=== PATIENT | female | born 1930 | race African-American/Black ===

== ENCOUNTER 2016-12-26 11:07 | Emergency (ER) | payer OTHER ==
[~2016-12-26] VITALS: Ht 167.6 cm; Wt 93.8 kg
[~2016-12-26 11:07] MED LIST: ALBUTEROL2.5 MG/0.5 INH; ALLOPURINOL 10100 M1 PO; AMLODIPINE BESY10 MG PO; ARTIFICIAL TEAR15 M1 OPHTHALMIC; ASPIR 8181 MG PO; ATIVAN INTENSOL SUBLING; ATIVAN0.5 MG PO; ATORVASTATIN CA40 MG PO; BACTROBAN CREAM30 G1 TOP; BENEPROTEIN1 EACH PER TUBE; BENEPROTEIN1 EACH PO; BISACODYL SUPP10 MG RECTAL; CENTRUM SILVER1 EAC4 PO; CLONIDINE0.1 PO; COLACE100 MG PO; COREG6.25 MG PO; COUMADIN 4 MG TA4 M1 PER TUBE; COUMADIN 4 MG TA4 M1 PO; COUMADIN 5 MG TA5 M1 PER TUBE; COUMADIN 5 MG TA5 M1 PO; DUONEB 2.5-0.5 M3 ML INH; ENGERIX B IM; EPOGEN20000 UNI2 SUBQ; GABAPENTIN 100100 MG PO; HEPARIN SO5000 UNIT/ SUBQ; HYDROCERIN CREA1 JAR TOP; IRON325 PO; LASIX 40 MG TAB40 M2 PO; LISINOPRIL10 MG PO; MAGOX 400400 MG PO; METOCLOPRAMIDE 55 M1 GT; MIRALAX17 GM PO; MODAFINIL100 MG PER TUBE; NEPHRO-VITE RX1 TA1 PER TUBE; NEPHROCAPS SOFT1 CAP PER TUBE; NEXIUM40 MG PO; NORCO 5-325 TA1 EACH PO; ONDANSETRON HCL4 M2 PO; ORAPRED15 MG/5 ML PO; OXYCODONE HCL10 MG PO; PANTOPRAZOLE SO40 M1 PO; PEPCID20 MG PO; PREDNISOLO15 MG/5 ML PER TUBE; PREDNISONE 20 M20 M1 PO; PREDNISONE 5 MG5 M1; PROTONIX40 M1 PO; REGLAN 10 MG TA10 MG PER TUBE; REGLAN 10 MG TA10 MG PO; ROBITUSSIN100 MG/53 PO; ROXANOL 20 M20 MG/ML PER TUBE; SENNA8.6 MG PER TUBE; SENOKOT-S1 TA1 PO; SYMBICORT160 MCG/4. INH; TRANSDERM-SCO1 PATC1 TD; TYLENOL325 MG PO; VANCOCIN 125 M125 M1; VANCOMYCIN100 MG/M1 PO; VENTOLIN HFA 1818 GM INH; VITAMIN D1000 UNI1 PO; XALATAN2.5 ML OPHTHALMIC; ZOFRAN ODT4 MG DISSOLVE
[2016-12-26 12:39] VITALS: BP 109/29
== END 2016-12-26 14:31 | disposition short-term general hospital (02) ==
LOC: ER 11:07
DX: T82.898A Other specified complication of vascular prosthetic devices, implants and grafts, initial encounter (principal); I13.2 Hypertensive heart and chronic kidney disease with heart failure and with stage 5 chronic kidney disease, or end stage renal disease; N18.6 End stage renal disease; I50.32 Chronic diastolic (congestive) heart failure; Z99.2 Dependence on renal dialysis; J44.9 Chronic obstructive pulmonary disease, unspecified; K21.9 Gastro-esophageal reflux disease without esophagitis; E78.5 Hyperlipidemia, unspecified; E66.8 Other obesity; F41.9 Anxiety disorder, unspecified; M10.9 Gout, unspecified; Z86.73 Personal history of transient ischemic attack (TIA), and cerebral infarction without residual deficits; I48.91 Unspecified atrial fibrillation; Z79.82 Long term (current) use of aspirin

== ENCOUNTER 2017-05-01 16:12 | Inpatient (IN) | payer OTHER ==
[~2017-05-01] VITALS: Ht 162.6 cm; Wt 88.5 kg
[2017-05-01] VITALS: BP 158/60
--- NOTE | ~2017-05-01 | EKG ---
[place] [address] [facility] [place] [address] ELECTROCARDIOGRAM REPORT Name: PIERCE BARON Room #: 450-P ADM IN M.R.#: [id number] Admission: 05/01/17 Attend Phys: Huan Blake DO Discharge: Date of : 30 Report #: [id number] THIS REPORT FOR: //name// [facility] ED Test Date: 2017-05-01 Test Time: 16:29:35 Pat Name: PIERCE BARON Department: Room: 450 Gender: F Dental Instructor: Oscar ASCENCIO : 1930 Requested By: Kameron Burleson Order Number: [id number] MD: Tang Sage Measurements Intervals [place] Rate: 114 P: 73 AK: 187 QRS: 35 QRSD: 103 T: 207 QT: 351 QTc: 484 Interpretive Statements Sinus tachycardia Multiform ventricular premature complexes Anteroseptal infarct, old Nonspecific ST and T wave abnormality Compared to ECG 11/06/2016 20:26:14 Premature supraventricular complexes are now present Electronically Signed On 05-03-2017 8:43:38 CDT by Tang Sage [email or web address] <ELECTRONICALLY SIGNED> By: Tang Sage MD, [facility] 05/03/17 0843 [id number] 1629 Tang Sage MD, [facility] /EPI
--- NOTE | ~2017-05-01 | HC ---
[facility] [place] [address] CONSULTATION Name: PIERCE BARON Room #: [facility]- ADM IN M.R.#: [id number] Admission: 05/01/17 Attend Phys: Huan Blake DO Discharge: Date of : 30 Report #: [id number] THIS REPORT FOR: //name// CC: Ruddy Christina MD [facility] physician/PCP Huan Blake DO DATE OF SERVICE: 05/02/2017 TYPE OF REPORT: Gastroenterology consultation. PATIENT OF: Huan Blake D.O. and Red Christina M.D. She is also a patient of Ruddy Vora M.D. CHIEF COMPLAINT AND HISTORY OF PRESENT ILLNESS: This is a very pleasant 86-year-old -Fijian female whom I am asked to evaluate for possible sources of coffee-ground emesis. The patient apparently was at dialysis today and shortly after she finished dialysis, she had some coffee-ground emesis. She came to the Emergency Room at [facility] for further evaluation. PAST MEDICAL HISTORY: Significant for iron-deficiency anemia, gastroesophageal reflux, diverticulitis, obesity, atrial fibrillation, chronic obstructive pulmonary disease, hypertension, hyperlipidemia, congestive heart failure, cerebrovascular accident with aphasia, history of pulmonary embolism, gout, glaucoma and end-stage renal disease and she is on dialysis. 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 PAST SURGICAL HISTORY: Significant for a breast lumpectomy that was benign and she had a vaginal hysterectomy. ALLERGIES: No known drug allergies. MEDICATIONS: Prior to admission are quite extensive and includes albuterol, allopurinol, aspirin, Dulcolax suppositories, vitamin D, cholestyramine, vitamin B12, Lasix, hydrocodone, Humalog insulin, DuoNeb, Xalatan eye drops, Zofran, artificial tears and Ativan. SOCIAL HISTORY: Not obtainable because the patient was aphasic. FAMILY HISTORY: Not obtainable because the patient was aphasic. REVIEW OF SYSTEMS: Likewise was not obtainable because of her aphasia. Most of this history is obtained from the patient's existing chart in the computer. [facility] [address] [place] [address] CONSULTATION Name: PIERCE BARON Room #: [address] [place] [address] IN .R.#: [id number] Admission: 05/01/17 Attend Phys: Huan Blake DO Discharge: Date of : 30 Report #: [id number] PHYSICAL EXAMINATION: GENERAL: Reveals a well-developed, obese 86-year-old -Fijian female, in no apparent distress at the time of my examination, who is awake and alert and answering some by yes or no or nodding her head yes or no. HEENT: She appears normocephalic and atraumatic and anicteric. HEART: Rate and rhythm are irregularly irregular consistent with her atrial fibrillation. LUNGS: Clear to auscultation. ABDOMEN: Soft and rotund. Bowel sounds are present in the abdomen but are decreased. There is no palpable organomegaly or mass, although it is difficult to palpate her abdomen because she is so large. She is diffusely tender to palpation; however, there is no rebound or guarding. EXTREMITIES: Warm and dry. NEUROLOGICAL: I did not test her extensively neurologically. SIGNIFICANT LABORATORY DATA: Showed a potassium of 2.5 on admission up to 3.2, now BUN 39 and creatinine 3.3. Liver enzymes are within normal limits. Albumin 2.4. Lactate was 1.3 yesterday. INR is 1.1. White blood cell count is 20.8; hemoglobin 9.5; hematocrit 30.1; indices are normal; RDW is 17.2 and platelet count 465,000. Urinalysis is pending. RADIOLOGICAL DATA: The significant findings on CT chest, abdomen and pelvis done on 05/01/2017 are as follows: Gas and fluid are distending the stomach. Gastrostomy tube was noted. There was a large amount of fluid and liquid appearing stool present throughout the entire colon with a generalized chronic distention. There is mild mural thickening of the ascending and transverse colon with associated pericolonic mesenteric fat stranding in the right and central abdomen suggesting possible colitis. There is also mesenteric fat stranding in the perirectal pelvic fat and in the presacral space and this could possibly reflect proctitis. There is generalized small bowel dilatation with small-bowel fluid gas, fluid and fecal-appearing material suggesting some degree of distal small-bowel obstruction. There is a bilobed cystic mass in the right pelvis that was identified on the prior CT scan that possibly represents a cystic right ovarian mass measuring 6.7 cm in its greatest dimensions, which is slightly increased in size from previous evaluations, may be enlarged right inguinal lymph nodes. IMPRESSION: 1. Coffee-ground emesis, uncertain etiology. 2. Anemia, history of iron deficiency. Stool is heme negative x 1 at this point. 3. Elevated white blood cell count of uncertain etiology. She appears to have colitis involving the ascending and transverse colon with stranding and proctitis and perirectal stranding. I think this is probably the etiology of the elevated white blood cell count, but I am not sure what is causing this. [address] [address] CONSULTATION Name: PIERCE BARON Room #: [address] [place] [address] IN M.R.#: [id number] Admission: 05/01/17 Attend Phys: Huan Blake DO Discharge: Date of : 30 Report #: [id number] The patient has a history of Clostridium difficile in December of 2014 but has been negative since then, according to repeat Clostridium difficile in the chart. 4. Dysphagia by history requiring a percutaneous endoscopic gastrostomy tube. This may have been the result of her cerebrovascular accident. 5. Gastroesophageal reflux. 6. History of diverticulitis. 7. Obesity. 8. Possible distal small-bowel obstruction. 9. Buttock wound. 10. Atrial fibrillation. 11. Chronic obstructive pulmonary disease. 12. Hypertension. 13. Hyperlipidemia. 14. History of congestive heart failure. 15. History of cerebrovascular accident with resulting aphasia. 16. History of pulmonary embolism. 17. History of gout. 18. History of glaucoma. 19. End-stage renal disease, on dialysis. 20. History of sleep apnea. 21. Arthritis. 22. 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 RECOMMENDATIONS: 1. My recommendations were to proceed with EGD today. We will start her on proton pump inhibitors. We will monitor her H and H. I would hold her tube feedings for now until I figure out if she really does have a small-bowel obstruction. 2. Would check stools for C. diff cultures and sensitivity and wbc's. 3. We will recheck her iron studies. 4. Breast-spectrum antibiotics. 5. We will check a lactate level. 6. We will place a PEG tube dependent drainage as her stomach is distended with fluid. 7. We will keep her n.p.o. for now. Thank you very much once again for allowing me to participate in her care, Dr. Blake. <ELECTRONICALLY SIGNED> By: Yelena Thibodeaux DO 05/08/17 0600 2336 1013 Yelena Thibodeaux, /nt
--- NOTE | ~2017-05-01 | HC ---
[facility] [place] [address] CONSULTATION Name: PIERCE BARON Room #: [facility]- ADM IN M.R.#: [id number] Admission: 05/01/17 Attend Phys: Huan Blake DO Discharge: Date of : 30 Report #: [id number] THIS REPORT FOR: //name// CC: [facility] physician/PCP Huan Blake TYPE OF REPORT: Infectious diseases consultation. REASON FOR CONSULTATION: I was asked to evaluate concerning leukocytosis. HISTORY OF PRESENT ILLNESS: The patient was an 86-year old with end-stage renal disease, who had seen last September where she was diagnosed with leukocytosis, exacerbation of her COPD, ovarian cystic mass with a recent GI bleed. Specific cause of her leukocytosis at that point in time was not definitively established. She was discharged on antibiotics. Later, she underwent a new tunneled IJ dialysis catheter in December. She returns on 05/01/2017 with coffee-ground emesis. No documented fever or chills. She continues on dialysis 3 days a week. At that time, she was again with leukocytosis over 20,000. The patient is a poor historian. She does have a history of diverticulitis, previous stroke with aphasia, some dementia, previous GI bleeding, atrial fibrillation, congestive heart failure, pancreatitis and gout. She also had an ovarian cystic mass, which was indeterminate and not pursued further. She underwent upper endoscopy showed severely ulcerated distal esophagitis with gastroparesis and retained coffee-ground liquid in the stomach. She has remained afebrile. Still has abdominal discomfort. No further bleeding identified. Stools have been light brown and soft. Remains on 4 liters of oxygen per nasal cannula. ALLERGIES: None known. MEDICATIONS: As noted on her OCT. PAST MEDICAL HISTORY: Unchanged from her H and P and that is in my previous consultation. FAMILY HISTORY: Unchanged from her H and P and that is in my previous consultation. SOCIAL HISTORY: Unchanged from her H and P and that is in my previous consultation. REVIEW OF SYSTEMS: No cough or sputum production. Continues to have discomfort in her abdomen, stage II sacral pressure ulcer and a small ulceration, right second toe. PHYSICAL EXAMINATION: VITAL SIGNS: Afebrile and hemodynamically stable. [facility] [address] [place] [address] CONSULTATION Name: PIERCE BARON Room #: [address] [place] [address] IN M.R.#: [id number] Admission: 05/01/17 Attend Phys: Huan Blake DO Discharge: Date of : 30 Report #: [id number] GENERAL: She was alert and cooperative, week and obese. HEENT: Unremarkable. Right chest dialysis catheter unremarkable. LUNGS: Few crackles in the bases bilaterally. HEART: Regular without murmur. ABDOMEN: Distended. She had a PEG tube in place. She had a moderate amount of tenderness in the mid abdomen. No hepatosplenomegaly or mass appreciated. EXTREMITIES: Unremarkable. Stage II sacral wound. LABORATORY STUDIES: Sodium 135, potassium 3.2, bicarbonate 22 and creatinine 3.3. Liver function test normal. Hemoglobin 8.8; WBC 20.8 and platelet count 465,000 with 91% lymphocytes. Blood cultures and stool culture are pending. RADIOLOGICAL DATA: CT scan of the chest and abdomen, generalized colonic distention with liquid stool throughout the colon and probable colitis involving the ascending and transverse colon. Possible distal small-bowel obstruction. Increased size of bilobed cystic mass in the right pelvis, suspected ovarian origin. Atelectasis in the right posterior lower lobe. IMPRESSION: An 86-year old with multiple comorbidities including end-stage renal disease with persistent leukocytosis. I do suspect abdominal source of her leukocytosis with colitis, likely ischemic component of her bowel. She also has an ovarian cystic mass, which has yet to be further defined. RECOMMENDATIONS: We will recommend continuing antibiotic coverage for intraabdominal source. If further evaluation planned, I would pursue lower endoscopy to assess her colonic mucosa. I am suspicious regarding ischemia. We will await GI service recommendations. I did discuss this with Internal Medicine who is also pursuing palliative care evaluation. I will continue her antibiotic program pending further direction. By: 1443 [id number] Red Christina MD /nt
--- NOTE | ~2017-05-01 | HC ---
[facility] [place] [address] CONSULTATION Name: PIERCE BARON Room #: [facility]- ADM IN M.R.#: [id number] Admission: 05/01/17 Attend Phys: Huan Blake DO Discharge: Date of : 30 Report #: [id number] THIS REPORT FOR: //name// CC: [facility] physician/PCP Huan Blake REASON FOR CONSULTATION: End-stage renal disease. REASON FOR PRESENTATION: Coffee-ground emesis. HISTORY OF PRESENT ILLNESS: The patient is an 86-year-old with past medical history of end-stage renal disease and dementia. Unfortunately, she is not able to provide me with the details of the history and most of the information was obtained from the patient's chart. The Emergency Medical says this is reported as episodes of coffee ground. This was following her dialysis yesterday. The patient did not report any associated symptoms in the form of abdominal pain or melena. She had expressive aphasia. She is also known to have multiple other comorbid conditions including atrial fibrillation, hypertension and COPD. She recently had an upper GI bleeding and had an endoscopy done in September of this year. The details of those are available in the [facility]. I was consulted to manage her end-stage renal disease. ALLERGIES: No known drug allergies. PAST MEDICAL HISTORY: Numerous including the followin. Hypertension. 2. Dementia. 3. Stroke with aphasia. 4. End-stage renal disease, maintained on dialysis every Saturday, Saturday and Saturday. 5. Recent upper GI bleeding. MEDICATIONS: 1. Albuterol. 2. Hydrocodone. 3. For unclear reasons to me, she is on prednisone. 4. Allopurinol. 5. Aspirin. 6. Furosemide. 7. Scopolamine. PAST SURGICAL HISTORY: 1. Hysterectomy. 2. Thrombectomy. SOCIAL HISTORY: She resides in the . No drug or alcohol abuse. [facility] [address] [place] [address] CONSULTATION Name: PIERCE BARON Room #: 450-P [facility]#: [id number] Admission: 05/01/17 Attend Phys: Huan Blake DO Discharge: Date of : 30 Report #: [id number] REVIEW OF SYSTEMS: Not able to obtain due to the patient's mental status. PHYSICAL EXAMINATION: GENERAL: The patient is alert, though she is not able to tell me where she is. VITAL SIGNS: Blood pressure was 146/105, pulse rate was 106 and temperature was 36. HEAD AND NECK: No jugular venous distention. CHEST: No crackles. CARDIOVASCULAR: No rub. ABDOMEN: Soft. Slight tenderness in the epigastrium. LOWER EXTREMITIES: No edema. LABORATORY DATA: Laboratory values reviewed. The most shocking is the potassium of 2.5. Hemoglobin is stable. IMAGING: Including chest x-ray reviewed. ASSESSMENT, IMPRESSION AND PLAN: 1. End-stage renal disease. 2. An episode of coffee-ground emesis. 3. Hypertension. 4. Remote history of stroke, dementia and aphasia. 5. Chronic obstructive pulmonary disease. 6. Anemia. 7. The patient received significant amount of potassium, almost up to 5 doses and I will need to obtain a potassium level and have to decide about dialyzing her today or not. If her potassium level is within normal range, we will defer the dialysis treatment until tomorrow. 8. GI workup has been initiated. She is known to have hemorrhagic esophagitis and gastritis and was recommended to be on PPI for some time. I will defer the management of this for the primary team. 9. Need to clarify whether she is on prednisone and this might be contributing to her gastrointestinal bleeding. 10. Blood pressure control. 11. We will continue to follow along. <ELECTRONICALLY SIGNED> By: Ruddy Vora MD 05/07/17 2146 1107 1229 Ruddy Vora MD /nt
--- NOTE | ~2017-05-01 | P ---
[facility] [place] [address] PROCEDURE REPORT Name: PIERCE BARON Room #: 450- ADM IN M.R.#: [id number] Admission: 05/01/17 Attend Phys: Huan Blake DO Discharge: Date of : 30 Report #: [id number] THIS REPORT FOR: //name// CC: [facility] physician/PCP Huan Reynolds DO DATE OF SERVICE: 05/02/[address] Huan Reynolds. INDICATION FOR PROCEDURE: This patient came in with coffee ground emesis to the Emergency Room last night. Her hemoglobin is 10 and it has been stable overnight. She has had no further hematemesis. The etiology of this hematemesis is unclear, I do not have computer access right now because the computer is , I cannot review her chart adequately, but I do have some of her current information including her medications and her allergies. EGD is being performed to try to evaluate the source of this coffee ground emesis. Informed consent for this procedure was obtained from the patient's DPOA. The risks of bleeding, perforation, infection, complications of sedation and the possibility that I could miss something were explained and permission was granted to proceed with EGD. The patient herself agrees with proceeding with EGD also after I explained it to her. Propofol was slowly titrated before and during this procedure for the patient's comfort by the anesthesia service. The [employer]ov[employer] upper videoscope was introduced through the upper esophageal sphincter and advanced under direct visualization to the descending duodenum. Findings are noted on withdrawal of the scope. The duodenal mucosa appears normal throughout its entirety. Pylorus, normal mucosa. Antrum, normal mucosa. There is some retained fluid in the distal stomach as well as in the fundus that is kid of blackish-green color. This may have been similar to what the patient was vomiting and it may indicate that she has gastroparesis. Body, normal mucosa. Cardia and fundus, normal mucosa. Retroflex view did not reveal any hiatal hernia. Scope was withdrawn to the esophagus from the Z line up until the center of the esophagus at 30 cm. There are severe white colored nonbleeding ulcerations. I do suspect that this is the source of coffee ground emesis. This would be consistent also with acid reflux related to poor stomach emptying or gastroparesis. The more proximal esophageal mucosa appears normal. The scope was withdrawn. The patient went to the recovery area in stable condition. She tolerated the procedure well. IMPRESSION: 1. Severely ulcerated distal esophagus as above. 2. Suspected gastroparesis with retained coffee ground liquid in the patient's stomach as above. [facility] [address] [place] [address] PROCEDURE REPORT Name: PIERCE BARON Room #: [address] [place] [address] IN M.R.#: [id number] Admission: 05/01/17 Attend Phys: Huan Blake DO Discharge: Date of : 30 Report #: [id number] RECOMMENDATIONS: To add a prokinetic and start her on proton pump inhibitors if this has not already been done. Can try to slowly resume tube feedings. Thank you very much once again for allowing me to participate in her care. <ELECTRONICALLY SIGNED> By: Yelena Thibodeaux DO 05/02/17 1800 1205 1300 Yelena Thibodeaux DO /nt
--- NOTE | ~2017-05-01 | HC ---
[facility] [place] [address] CONSULTATION Name: PIERCE BARON Room #: [facility]- ADM IN M.R.#: [id number] Admission: 05/01/17 Attend Phys: Huan Blake DO Discharge: Date of : 30 Report #: [id number] THIS REPORT FOR: //name// CC: [facility] physician/PCP Huan Blake DATE OF SERVICE: 05/02/2017 CHIEF COMPLAINT: Stage II sacral pressure ulceration. HISTORY OF PRESENT ILLNESS: This is an 86-year-old female patient who was admitted to the hospital from half-way with a GI bleed. She is nonverbal, apparently had coffee-ground emesis, she was noted to have some skin breakdown. I have been asked to see her in this regard. PAST MEDICAL HISTORY: Positive for history of altered mental status, congestive heart failure, chronic renal failure, COPD, dialysis catheter clot, end-stage renal disease, history of pulmonary embolus, and upper GI bleeding. ALLERGIES: None. MEDICATIONS: Include DuoNeb, Dulcolax, Zofran, Ativan, Zyloprim, Lasix, and Xalatan. FAMILY HISTORY: Unknown. SOCIAL HISTORY: Unknown. REVIEW OF SYSTEMS: Not obtainable due to the patient's aphasia. PHYSICAL EXAMINATION: VITAL SIGNS: The patient's vital signs at this time include pulse 91, temperature 97.2, respiratory rate 24, and blood pressure 146/43. GENERAL: This is a chronically ill-appearing female patient, appears to be in no distress. HEENT: Head normocephalic. NECK: Supple. LUNGS: Diminished. HEART: Irregular. ABDOMEN: Soft, nontender. EXTREMITIES: Demonstrate some necrosis and eschar involving the dorsal aspect of the right second toe. There is no evidence of infection. The sacral region demonstrates some stage II breakdown on the sacral gluteal region with no evidence of infection. CLINICAL IMPRESSION: [facility] [address] [place] [address] CONSULTATION Name: PIERCE BARON Room #: 450-P ADM IN [place]#: [id number] Admission: 05/01/17 Attend Phys: Huan Blake DO Discharge: Date of : 30 Report #: [id number] 1. Arterial ulceration of the right second toe. 2. Stage II sacral pressure ulceration. RECOMMENDATIONS: At this point in time, we would recommend Betadine to the eschar on the right great toe in order to keep it dry and not infected. I would not recommend debridement at this time. We would recommend a moisture barrier cream to the sacral region, she need to be turned and repositioned every 2 hours. I appreciate being asked to see her in consultation. <ELECTRONICALLY SIGNED> By: Constantine Hernandez MD 05/03/17 1539 0816 0937 Constantine Hernandez MD /nt
[2017-05-01 16:14] VITALS: BP 145/102
[2017-05-01 17:37] LABS: HEMATOCRIT 31.6 % (37.0-47.0); MCH 29.9 pg (26.0-34.0); MCHC 31.5 g/dL (28.0-37.0); MCV 94.7 fL (80.0-100.0); PLATELET COUNT 525 thou/uL (150-400); RBC 3.33 mil/uL (4.20-5.00); RDW 17.4 % (10.5-14.5); WBC 20.4 thou/uL (4.0-11.0)
[2017-05-01 17:39] LABS: MANUAL DIFF YES
[2017-05-01 17:43] LABS: ANION GAP 11 mmol/L (7-16); BUN 37 mg/dL (7-18); CALCIUM 8.9 mg/dL (8.5-10.1); CHLORIDE 101 mmol/L (98-107); CO2 23 mmol/L (21-32); CREATININE 3.2 mg/dL (0.6-1.0); GLUCOSE 110 mg/dL (74-106); SODIUM 135 mmol/L (136-145)
[2017-05-01 17:48] LABS: INR 1.1; PROTIME 11.4 Seconds (9.3-11.4)
[2017-05-01 17:51] LABS: ALBUMIN 2.4 g/dL (3.4-5.0); ALKALINE PHOSPHATASE 75 U/L (46-116); SGOT 20 U/L (15-37); SGPT 16 U/L (30-65); TOTAL BILIRUBIN 0.3 mg/dL (<0.1-1.0); TOTAL PROTEIN 6.7 g/dL (6.4-8.2); TROPONIN-I < 0.04 ng/mL (<0.04-0.07)
[2017-05-01 17:52] LABS: POTASSIUM 2.5 mmol/L (3.5-5.1)
[2017-05-01 18:08] LABS: ABSOLUTE NEUTROPHILS 18.6 thou/uL (1.4-8.2); ANISOCYTOSIS 1+; TOTAL CELL COUNT 100
[2017-05-01] MEDS ORDERED: ALLOPURINOL 10100 M1 PER TUBE (18:25)
[2017-05-01] MEDS ORDERED: ASPIR 8181 M1 (18:27)
[2017-05-01] MEDS ORDERED: LASIX 20 MG TAB20 MG (18:28)
[2017-05-01] MEDS ORDERED: XALATAN2.5 ML OPHTHALMIC (18:29)
[2017-05-01] MEDS ORDERED: VITAMIN D1000 UNI1 (18:30)
[2017-05-01] MEDS ORDERED: CHOLESTYRAMINE R5 GM (18:38)
[2017-05-01] MEDS ORDERED: VITAMIN B-12500 MCG PER TUBE (18:39)
[2017-05-01] MEDS ORDERED: HYDROCODONE-ACE15 ML PER TUBE (18:40)
[2017-05-01] MEDS ORDERED: HUMALOG100 UNIT/1 SUBQ (18:42)
[2017-05-01 19:13] VITALS: BP 111/57
[2017-05-01 19:47] VITALS: BP 101/47
[2017-05-01 20:40] VITALS: BP 115/43
[2017-05-02] VITALS: BP 158/60
[2017-05-02 02:49] LABS: CALCIUM 8.3 mg/dL (8.5-10.1); CREATININE 3.3 mg/dL (0.6-1.0)
[2017-05-02 02:59] LABS: HEMATOCRIT 30.1 % (37.0-47.0); HEMOGLOBIN 9.5 gm/dL (12.0-15.0); MCHC 31.4 g/dL (28.0-37.0); MCV 95.3 fL (80.0-100.0); PLATELET COUNT 465 thou/uL (150-400); RBC 3.16 mil/uL (4.20-5.00); RDW 17.2 % (10.5-14.5); WBC 20.8 thou/uL (4.0-11.0)
[2017-05-02 03:11] LABS: POTASSIUM 2.9 mmol/L (3.5-5.1)
[2017-05-02 03:35] VITALS: BP 147/49
[2017-05-02 04:48] LABS: MANUAL DIFF YES
[2017-05-02 04:56] LABS: ABSOLUTE NEUTROPHILS 18.1 thou/uL (1.4-8.2); ANISOCYTOSIS 1+; LARGE PLATELETS OCCASIONAL; MYELOCYTES 1 %; TOTAL CELL COUNT 100; TOXIC GRANULATION SLIGHT
[2017-05-02 08:20] VITALS: BP 141/54
[2017-05-02 12:50] VITALS: BP 159/51
[2017-05-02 16:40] VITALS: BP 152/54
[2017-05-02 19:10] VITALS: BP 146/43
[2017-05-03 04:37] VITALS: BP 157/57
[2017-05-03 06:33] LABS: HEMATOCRIT 28.1 % (37.0-47.0); HEMOGLOBIN 8.8 gm/dL (12.0-15.0)
[2017-05-03 07:23] LABS: ABG SAMPLE TYPE ARTERIAL; BE(vivo) -10.5 mmol/L (-2 to +3); HCO3 16.3 mmol/L (22.0-26.0); LACTATE 0.92 mmol/L (0.5-2.0); O2(CT) 13.9 mL/dL (15.0-23.0); O2Hb 97.9 % (92.0-98.0); PCO2 39.7 mmHg (35.0-45.0); PO2 139.3 mmHg (80.0-100.0); sO2 98.3 % (92.0-98.0); tCO2 17.5 mmol/L (24.0-30.0)
[2017-05-03 07:25] LABS: STICK SITE R.RADIAL; pH 7.232 (7.360-7.450)
[2017-05-03 07:29] LABS: ABG COMMENT .PT GETTING DIALYSIS
[2017-05-03 07:34] LABS: % SATURATION 29 % (20-39); IRON 28 ug/dL (50-170); TIBC 95 ug/dL (250-450); UIBC 67 ug/dL
[2017-05-03 08:25] VITALS: BP 148/66
[2017-05-03 11:40] VITALS: BP 134/50
[2017-05-03 15:19] VITALS: BP 146/51
[2017-05-03 20:04] VITALS: BP 124/41
[2017-05-04 04:19] VITALS: BP 107/41
[2017-05-04 07:08] VITALS: BP 139/51
[2017-05-04 11:31] VITALS: BP 128/43
[2017-05-04 13:02] LABS: ABSOLUTE NEUTROPHILS 7.5 thou/uL (1.4-8.2); BASOPHILS 0.3 % (0.0-2.0); EOSINOPHILS 2.9 % (0.0-3.0); HEMATOCRIT 25.5 % (37.0-47.0); HEMOGLOBIN 8.3 gm/dL (12.0-15.0); LYMPHOCYTES 16.9 % (24.0-44.0); MCH 30.6 pg (26.0-34.0); MCHC 32.7 g/dL (28.0-37.0); MCV 93.8 fL (80.0-100.0); MONOCYTES 10.6 % (1.0-8.0); PLATELET COUNT 499 thou/uL (150-400); POLYS 69.3 % (36.0-66.0); RBC 2.72 mil/uL (4.20-5.00); RDW 17.2 % (10.5-14.5); WBC 10.8 thou/uL (4.0-11.0)
[2017-05-04 13:03] LABS: MANUAL DIFF NO
[2017-05-04 15:34] VITALS: BP 125/50
[2017-05-04 19:41] VITALS: BP 124/62
[2017-05-05 04:32] VITALS: BP 141/45
[2017-05-05 06:29] LABS: ABSOLUTE NEUTROPHILS 7.5 thou/uL (1.4-8.2); BASOPHILS 0.8 % (0.0-2.0); EOSINOPHILS 5.4 % (0.0-3.0); HEMATOCRIT 27.7 % (37.0-47.0); HEMOGLOBIN 8.9 gm/dL (12.0-15.0); LYMPHOCYTES 15.7 % (24.0-44.0); MCH 30.2 pg (26.0-34.0); MCHC 31.9 g/dL (28.0-37.0); MCV 94.5 fL (80.0-100.0); MONOCYTES 9.5 % (1.0-8.0); PLATELET COUNT 548 thou/uL (150-400); POLYS 68.6 % (36.0-66.0); RBC 2.93 mil/uL (4.20-5.00)
[2017-05-05 06:35] LABS: MANUAL DIFF NO
[2017-05-05 08:04] VITALS: BP 144/54
[2017-05-05 12:02] LABS: CALCIUM 8.4 mg/dL (8.5-10.1); CREATININE 4.5 mg/dL (0.6-1.0); MAGNESIUM 1.5 mg/dL (1.8-2.4); POTASSIUM 3.4 mmol/L (3.5-5.1)
[2017-05-05 13:56] VITALS: BP 135/66
[2017-05-05 16:43] VITALS: BP 132/61
[2017-05-05 19:29] VITALS: BP 143/55
[2017-05-06 05:46] LABS: ABSOLUTE NEUTROPHILS 8.7 thou/uL (1.4-8.2); BASOPHILS 0.7 % (0.0-2.0); CALCIUM 8.2 mg/dL (8.5-10.1); CREATININE 5.1 mg/dL (0.6-1.0); EOSINOPHILS 5.8 % (0.0-3.0); HEMATOCRIT 26.6 % (37.0-47.0); HEMOGLOBIN 8.6 gm/dL (12.0-15.0); LYMPHOCYTES 15.1 % (24.0-44.0); MCH 30.7 pg (26.0-34.0); MCHC 32.4 g/dL (28.0-37.0); MCV 94.8 fL (80.0-100.0); PLATELET COUNT 510 thou/uL (150-400); POLYS 70.4 % (36.0-66.0); RDW 17.3 % (10.5-14.5); WBC 12.4 thou/uL (4.0-11.0)
[2017-05-06 05:49] LABS: POTASSIUM 2.9 mmol/L (3.5-5.1)
[2017-05-06 05:51] LABS: MANUAL DIFF NO
[2017-05-06 06:24] VITALS: BP 141/52
[2017-05-06 16:00] VITALS: BP 142/63
[2017-05-06 19:14] VITALS: BP 141/68
[2017-05-07 03:32] VITALS: BP 122/37
[2017-05-07 07:03] VITALS: BP 122/51
[2017-05-07 11:30] VITALS: BP 119/37
[2017-05-07 15:07] VITALS: BP 116/34
[2017-05-07 19:09] VITALS: BP 104/30
[2017-05-08 04:54] LABS: HEMATOCRIT 22.8 % (37.0-47.0); HEMOGLOBIN 7.5 gm/dL (12.0-15.0); MCH 30.6 pg (26.0-34.0); MCHC 32.7 g/dL (28.0-37.0); MCV 93.5 fL (80.0-100.0); RBC 2.44 mil/uL (4.20-5.00); WBC 8.9 thou/uL (4.0-11.0)
[2017-05-08 05:20] VITALS: BP 154/77
[2017-05-08 12:29] VITALS: BP 135/70
[2017-05-08 16:28] VITALS: BP 145/73
[2017-05-08 19:25] VITALS: BP 118/48
[2017-05-09 04:21] VITALS: BP 148/66
[2017-05-09 07:15] VITALS: BP 123/34
[2017-05-09 11:56] VITALS: BP 141/48
== END 2017-05-09 15:54 | DRG 377 ==
LOC: ER 16:12 → 4W 18:28
PROVIDERS: Family Medicine; Internal Medicine Gastroenterology; Nurse Practitioner; Physician Assistant; Specialist; Surgery
PROC: 0DJ08ZZ Inspection of Upper Intestinal Tract, Via Natural or Artificial Opening Endoscopic (ICD-10-PCS; principal; 2017-05-02)
DX: K92.2 Gastrointestinal hemorrhage, unspecified (principal); N18.6 End stage renal disease; R65.10 Systemic inflammatory response syndrome (SIRS) of non-infectious origin without acute organ dysfunction; I13.0 Hypertensive heart and chronic kidney disease with heart failure and stage 1 through stage 4 chronic kidney disease, or unspecified chronic kidney disease; R47.01 Aphasia; K56.60 Unspecified intestinal obstruction; K22.10 Ulcer of esophagus without bleeding; I69.954 Hemiplegia and hemiparesis following unspecified cerebrovascular disease affecting left non-dominant side; I48.91 Unspecified atrial fibrillation; J44.9 Chronic obstructive pulmonary disease, unspecified; M19.90 Unspecified osteoarthritis, unspecified site; G47.33 Obstructive sleep apnea (adult) (pediatric); K21.9 Gastro-esophageal reflux disease without esophagitis; E66.9 Obesity, unspecified; Z68.33 Body mass index [BMI] 33.0-33.9, adult; E78.5 Hyperlipidemia, unspecified; F41.9 Anxiety disorder, unspecified; M10.9 Gout, unspecified; E87.6 Hypokalemia; D72.829 Elevated white blood cell count, unspecified; F03.90 Unspecified dementia, unspecified severity, without behavioral disturbance, psychotic disturbance, mood disturbance, and anxiety; D64.9 Anemia, unspecified; I50.9 Heart failure, unspecified; L89.152 Pressure ulcer of sacral region, stage 2; H40.9 Unspecified glaucoma; N83.9 Noninflammatory disorder of ovary, fallopian tube and broad ligament, unspecified; L89.302 Pressure ulcer of unspecified buttock, stage 2; R41.0 Disorientation, unspecified; K52.9 Noninfective gastroenteritis and colitis, unspecified; K31.84 Gastroparesis; Z90.710 Acquired absence of both cervix and uterus; Z86.711 Personal history of pulmonary embolism; Z79.82 Long term (current) use of aspirin; Z79.899 Other long term (current) drug therapy
CPT/HCPCS: 10045; 32100; 62110; 62900; 70005

== ENCOUNTER 2017-05-17 19:46 | Inpatient (IN) | payer OTHER ==
[~2017-05-17] VITALS: Wt 86.1 kg
--- NOTE | ~2017-05-17 | HC ---
[facility] [address] [place] [address] CONSULTATION Name: PIERCE BARON Room #: 423-1 [facility] IN M.R.#: [id number] Admission: 05/17/17 Attend Phys: Homer De MD Discharge: 05/24/17 Date of : 30 Report #: [id number] THIS REPORT FOR: //name// CC: Cassie Alvarado REASON FOR CONSULTATION: End-stage renal disease. HISTORY OF PRESENT ILLNESS: The patient is not able to provide me with history, she has dementia, advanced and noncommunicative, aphasic person. She is well known to me. She is an end-stage renal disease, status post CVA who was just discharged from the hospital and was in the [facility]. She presented to the emergency room because the nursing staff had some issues with her diarrhea and vomiting. She is a Saturday, Saturday, and Saturday dialysis patient. Recently hospitalized and family declined palliative and hospice and wanted all treatment measures to be continued. She has failed in the last few years and has had recurrent admissions. She is known to have hypertension, AFib, whole list of other medications. I was asked to manage her end-stage renal disease. She was evaluated by the surgical team at the last admissions and she was deemed to be a nonsurgical candidate. PAST MEDICAL HISTORY: From the charts. 1. End-stage renal disease. 2. Obstructive sleep apnea. 3. Hyperlipidemia. 4. Status post lumpectomy. 5. CVA. 6. Hyperlipidemia. 7. Colitis. SOCIAL HISTORY: Resides in the [facility]. No drug or alcohol abuse. REVIEW OF SYSTEMS: Unobtainable given the patient's mental status. FAMILY HISTORY: Unobtainable given the patient's mental status. MEDICATIONS LISTED: 1. Aspirin. 2. Insulin. 3. Fentanyl. 4. Hydrocodone. 5. Zofran. 6. Albuterol. ALLERGIES: No known drug allergies. PHYSICAL EXAMINATION: [facility] [address] [place] [address] CONSULTATION Name: PIERCE BARON Room #: [address] [place] [address] IN M.R.#: [id number] Admission: 05/17/17 Attend Phys: Homer De MD Discharge: 05/24/17 Date of : 30 Report #: [id number] GENERAL: She is disoriented to time, place, person. VITAL SIGNS: Blood pressure is 140/26. HEAD AND NECK: No jugular venous distention. She has a right IJ tunneled catheter. CHEST: Decreased air entry bilaterally. CARDIOVASCULAR: No rub detected. ABDOMEN: Soft, nontender with no hepatosplenomegaly. There is a PEG tube. LOWER EXTREMITIES: No edema. LABORATORY VALUES: Reviewed. Most striking laboratory values are her potassium values at 2.5. White blood cell count 27,000. Cultures are pending. Abdomen CT reviewed. ASSESSMENT, IMPRESSION AND PLAN: 1. End-stage renal disease. 2. Cerebrovascular disease, aphasia. 3. Possible colitis. 4. Debility with repeated hospitalizations in the last year or so. 5. Dialysis will be arranged every Saturday, Saturday and Saturday. We will defer the management of her other issues to the primary team. I really think that this is ____ stage with the patient requiring repeated hospitalization. She was discharged from the hospital just about a week ago and we should discuss with the family palliative and comfort care as this seems to be a persistent and recurrent issue. <ELECTRONICALLY SIGNED> By: Ruddy Vora MD 05/29/17 1000 [id number] Ruddy Vora MD /nt
--- NOTE | ~2017-05-17 | HC ---
[facility] [place] [address] CONSULTATION Name: PIERCE BARON Room #: [facility] ADM IN M.R.#: [id number] Admission: 05/17/17 Attend Phys: Homer De MD Discharge: Date of : 30 Report #: [id number] THIS REPORT FOR: //name// CC: Cassie Alvarado DATE OF SERVICE: 05/20/2017 HISTORY OF PRESENT ILLNESS: The patient is an 86-year-old patient with whom I am familiar from recent hospitalization. She has ulcerations involving her second toes on both feet as well as a history of a sacral ulcer. I have been asked to see her with regard to wound care. She has been admitted at this time with diarrhea and abdominal pain. She is nonverbal, is not able to offer much insight into her current condition. She does not appear to be in distress and does make eye contact with the wound care nurse. PAST MEDICAL HISTORY: Prior history of altered mental status, congestive heart failure, chronic renal failure, COPD, end-stage renal disease, history of pulmonary embolus and upper GI bleeding. ALLERGIES: None. MEDICATIONS: Include DuoNeb, Dulcolax, Zofran, Ativan, Zyloprim, Lasix, and Xalatan. FAMILY HISTORY: Unknown. SOCIAL HISTORY: Unknown. REVIEW OF SYSTEMS: Unobtainable due to the patient's aphasia. PHYSICAL EXAMINATION: VITAL SIGNS: At this time include pulse 104, temperature 99.0, respiration of 18, blood pressure 151/64. GENERAL: This is a chronically ill-appearing female patient, who appears to be in no distress. HEENT: Head normocephalic. Nose and throat clear. NECK: Supple. LUNGS: Clear. ABDOMEN: Soft. Bowel sounds present. EXTREMITIES: Examination of lower extremities demonstrates small areas of eschar on the dorsal aspects of the second toes of each foot. These are dry, stable, intact and not infected. No other open areas are noted, heels are intact. Sacral region demonstrates previously healed sacral ulceration and continues to be epithelialized. [address] [address] CONSULTATION Name: PIERCE BARON Room #: 423-1 ADM IN M.R.#: [id number] Admission: 05/17/17 Attend Phys: Homer De MD Discharge: Date of : 30 Report #: [id number] CLINICAL IMPRESSION: 1. 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 2. History of sacral pressure ulceration remaining closed. 3. Abdominal pain, diarrhea. RECOMMENDATIONS: At this point in time, we will recommend moisture barrier cream to the sacral region q.2 hour turning and repositioning. We will recommend Betadine and otherwise left open to air the areas of eschar on both feet. Prevalon boots while she is in bed at all times. Continue nutritional support. She has a PEG tube. I appreciate being asked to see her again in consultation. <ELECTRONICALLY SIGNED> By: Constantine Hernandez MD 05/24/17 1223 1857 0735 Constantine Hernandez MD /nt
--- NOTE | ~2017-05-17 | HC ---
[facility] [place] [address] CONSULTATION Name: PIERCE BARON Room #: [facility] ADM IN M.R.#: [id number] Admission: 05/17/17 Attend Phys: Cassie Dang Discharge: Date of : 30 Report #: [id number] THIS REPORT FOR: //name// CC: Cassie Alvarado DATE OF SERVICE: 05/18/2017 INFECTIOUS DISEASE CONSULTATION REASON FOR CONSULTATION: I was asked to evaluate concerning diarrhea, abdominal pain. HISTORY OF PRESENT ILLNESS: She was recently hospitalized with suspected small bowel ischemia. She had persistent leukocytosis. Overall, not a reasonable surgical candidate. She was dismissed on Augmentin. Continued to have loose stools. Now comes back in with basically similar symptoms. No documented fever or chills. She has a PEG tube in place. Currently complains about the rectal tube that is in her anus. She is on dialysis. She does have underlying advanced dementia and previous stroke with left-sided hemiparesis. ALLERGIES: None known. MEDICATIONS: As noted on her OCT, now including ciprofloxacin and metronidazole. PAST MEDICAL HISTORY: Unchanged from her previous consultation. FAMILY HISTORY: Unchanged from her previous consultation. SOCIAL HISTORY: Unchanged from her previous consultation. REVIEW OF SYSTEMS: The patient was unable to give much detail. PHYSICAL EXAMINATION: VITAL SIGNS: She is afebrile, hemodynamically stable. She was on 1 liter nasal cannula with oxygen saturation 100%. GENERAL: Alert. She has a rectal tube in place, but is having soft stool around this. PEG site was intact. She had a peripheral IV in the right upper extremity. She had a right chest tunneled dialysis catheter. HEENT: Unremarkable. She was awake and able to converse. CHEST: Clear. HEART: Regular, without murmur. ABDOMEN: Tender in the mid abdomen with moderate distention. No definite mass. EXTREMITIES: Left hemiparesis and peripheral edema, mostly in the lower extremities. [facility] [address] [place] [address] CONSULTATION Name: PIERCE BARON Room #: [facility] ADM IN ..#: [id number] Admission: 05/17/17 Attend Phys: Cassie Dang Discharge: Date of : 30 Report #: [id number] LABORATORY STUDIES: Blood cultures are negative to date. Hemoglobin is 7.2, WBC 21.7, platelet count 381,000. Liver function test normal. RADIOLOGIC IMAGING: CT scan of the abdomen and pelvis: Scattered air fluid levels within the bowel loops, nonspecific, mild enterocolitis. No bowel obstruction evident. ASSESSMENT AND PLAN: Small bowel disease with suspected ischemia. I do not see much else to offer if we are not able to progress to surgery. Her stools have been C. difficile PCR negative. Stool I am seeing right now seems to be fairly soft and coming around the rectal tube. She does have a very small sacral decubitus, does not appear to be enough to have driven her leukocytosis. She has small ulcers to her toes, but, again, nothing that appears to be driving this ongoing issue. We will therefore continue her current antibiotic program, which seems reasonable considering her previous treatment. We will see how she does over the next 24-48 hours. <ELECTRONICALLY SIGNED> By: Red Christina MD 05/19/17 1301 1417 1458 Red Christina MD /nt
--- NOTE | ~2017-05-17 | HC ---
[facility] [place] [address] CONSULTATION Name: PIERCE BARON Room #: [facility] ADM IN M.R.#: [id number] Admission: 05/17/17 Attend Phys: Cassie Dang Discharge: Date of : 30 Report #: [id number] THIS REPORT FOR: //name// CC: Cassie Alvarado DATE OF SERVICE: 05/18/2017 GASTROINTESTINAL CONSULTATION HISTORY OF PRESENT ILLNESS: This is a patient who is unable to give a history secondary to CVA. Apparently, she presented with nausea, vomiting, diarrhea and I have been asked to see her in this regard. PAST MEDICAL HISTORY: Her medical history is notable for end-stage renal disease, obstructive sleep apnea, hyperlipidemia, lumpectomy, CVA and a history of colitis, although the details are not readily available. MEDICATIONS: Include aspirin, insulin, fentanyl, hydrocodone, Zofran, albuterol. ALLERGIES: She is allergic to no medications. FAMILY HISTORY AND SOCIAL HISTORY: Noncontributory. REVIEW OF SYSTEMS: Not possible. PHYSICAL EXAMINATION: VITAL SIGNS: Afebrile. Vital signs stable. HEENT: Nonicteric. NECK: No JVD, thyromegaly or bruits. CARDIOVASCULAR: Regular. ABDOMEN: Soft, mildly distended, tender throughout. No rebound or guarding. No stigmata of chronic liver disease. No abnormal masses or bruits. EXTREMITIES: Not examined. RECTAL: Deferred. LABORATORY DATA: Include hemoglobin 8.5, white count 27.1, platelet count 464. Serum chemistry notable for sodium 132, BUN 21, creatinine 2.9, calcium 7.9. C. diff is pending. RADIOLOGIC IMAGING: CT abdomen and pelvis reveals scattered air fluid levels within the bowel loops with fluid and fecal material within the colon, nonspecific finding which may represent mild enteritis or colitis. ASSESSMENT: In summary, the patient presents with nausea, vomiting and [facility] [address] [place] [address] CONSULTATION Name: PIERCE BARON Room #: 423-1 ADM IN [facility]#: [id number] Admission: 05/17/17 Attend Phys: Cassie Dang Discharge: Date of : 30 Report #: [id number] diarrhea. We are checking for C. diff. She may just have a viral gastroenteritis. I would cover her with a PPI as elderly patients sometimes present with nausea and vomiting secondary to severe erosive esophagitis. PLAN: We will follow concurrently and follow up her studies as indicated. Again, I appreciate the opportunity to participate in her care. <ELECTRONICALLY SIGNED> By: Pancho Brooks MD 05/19/17 0952 [id number] 1445 Pancho Brooks MD /nt
--- NOTE | ~2017-05-17 | EKG ---
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 : 1930 Requested By: Cassie Dang Order Number: [id number] MD: Tang Sage Measurements Intervals [place] Rate: 92 P: 75 LA: 213 QRS: 40 QRSD: 113 T: -87 QT: 344 QTc: 426 Interpretive Statements Sinus rhythm Atrial premature complex Incomplete left bundle branch block Compared to ECG 05/01/2017 16:29:35 Atrial premature complex(es) now present Sinus tachycardia no longer present Ventricular premature complex(es) no longer present Electronically Signed On 05-20-2017 8:14:43 CDT by Tang Sage [email or web address] <ELECTRONICALLY SIGNED> By: Tang Sage MD, [facility] 05/20/17 0814 52 52 Tang Sage MD, [facility] /EPI
--- NOTE | ~2017-05-17 | P ---
[facility] [place] [address] PROCEDURE REPORT Name: PIERCE BARON Room #: [facility] IN M.R.#: [id number] Admission: 05/17/17 Attend Phys: Homer De MD Discharge: 05/24/17 Date of : 30 Report #: [id number] THIS REPORT FOR: //name// CC: Cassie Alvarado MD DATE OF SERVICE: 05/23/2017 DATE OF SERVICE: 05/23/2017 PROCEDURE: Diagnostic EGD with dilatation of the distal esophagus by the scope. INDICATION FOR PROCEDURE: This patient is complaining of left upper quadrant pain, etiology uncertain. She had an EGD earlier this month that revealed distal esophagitis that was quite severe. I felt that a repeat EGD would be important to evaluate the healing process and see if there is anything in the upper GI tract that might be causing this left upper quadrant pain. Informed consent for this procedure was obtained prior to the administration of any medication. The risks of the procedure, which include bleeding, perforation, infection, complications of sedation and the possibility I could miss something have been explained to the patient and she has indicated her consent by signing. DESCRIPTION OF PROCEDURE: Propofol was slowly titrated before and during this procedure for patient comfort by the anesthesia service. The [employer] upper videoscope was introduced through the upper esophageal sphincter and advanced under direct visualization to the mid esophagus. 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 The patient has been on aspirin and I do not think we would do anything about her Young's except give her proton pump inhibitors anyway, so I did not biopsy this area. A little farther down just a little bit above the Z line, there was a tight esophageal stricture that was not present earlier this month, but apparently has developed in the healing process of the severe esophagitis. I was easily able to just gently nudge the scope through this stricture and into the stomach. There was some mild oozing that stopped spontaneously when I did this. Then the scope was advanced down and through the stomach and into the duodenum to the distal second portion. Findings are noted on withdrawal of the scope. The duodenal mucosa appears normal throughout its entirety. Pylorus: Normal mucosa. Antrum: Normal mucosa. Body: Normal mucosa. Cardia and fundus: normal mucosa. Retroflex view did not reveal any hiatal hernia. Scope was withdrawn into the esophagus. The strictured area has stopped oozing in the distal esophagus and the stricture appeared widely patent at this point just from dilatation by the [facility] [address] [place] [address] PROCEDURE REPORT Name: PIERCE BARON Room #: 423-1 [facility] IN M.R.#: [id number] Admission: 05/17/17 Attend Phys: Homer De MD Discharge: 05/24/17 Date of : 30 Report #: [id number] scope. For several centimeters in the distal esophagus, there is an area that I think is quite suspicious for Young ectopic mucosa and as mentioned, I did not biopsy this to confirm it. There are no nodules or irregularities to the mucosa at this level. The more proximal esophageal mucosa appears normal. The scope was withdrawn. The patient went to the recovery area in stable condition. She tolerated the procedure well. IMPRESSION: 1. 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 2. 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 RECOMMENDATIONS: For her to resume her tube feedings and continue her proton pump inhibitors, intermediate. Thank you very much once again for allowing me to participate in her care, Dr. De and Dr. Alvarado. I should mentioned that if her left upper quadrant pain persists after this dilatation of the esophagus, then I think the next step is going to be a colonoscopy to see if there is an etiology there that might be causing this pain that she is experiencing. <ELECTRONICALLY SIGNED> By: Yelena Thibodeaux DO 05/28/17 1742 1442 1238 Yelena Thibodeaux DO /nt
--- NOTE | ~2017-05-17 | EKG ---
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 : 1930 Requested By: Talha Chavez Order Number: [id number] MD: Carlton Proctor Measurements Intervals [place] Rate: 115 P: 96 [place]: 168 QRS: 39 QRSD: 115 T: -86 QT: 320 QTc: 443 Interpretive Statements Sinus tachycardia Atrial premature complex Incomplete left bundle branch block Borderline low voltage, extremity leads Compared to ECG 05/17/2017 19:53:09 Sinus rhythm no longer present Electronically Signed On 05-24-2017 15:33:40 CDT by Carlton Proctor [email or web address] <ELECTRONICALLY SIGNED> By: Carlton Proctor MD 05/24/17 1533 Carlton Proctor MD /EPI
[~2017-05-17 19:46] MED LIST changes: +ALLOPURINOL 10100 M1 PER TUBE; +ASPIR 8181 M1 PER TUBE; +CHOLESTYRAMINE R5 GM; +HUMALOG100 UNIT/1 SUBQ; +HYDROCODONE-ACE15 ML PER TUBE; +LASIX 20 MG TAB20 MG; +VITAMIN B-12500 MCG PER TUBE; +VITAMIN D1000 UNI1
[2017-05-17 19:47] VITALS: BP 127/53
[2017-05-17 21:01] LABS: HEMATOCRIT 26.4 % (37.0-47.0); HEMOGLOBIN 8.5 gm/dL (12.0-15.0); MCH 29.5 pg (26.0-34.0); MCHC 32.3 g/dL (28.0-37.0); MCV 91.3 fL (80.0-100.0); PLATELET COUNT 464 thou/uL (150-400); RBC 2.89 mil/uL (4.20-5.00); RDW 16.7 % (10.5-14.5); WBC 27.1 thou/uL (4.0-11.0)
[2017-05-17 21:02] LABS: MANUAL DIFF YES
[2017-05-17] MEDS ORDERED: LASIX 20 MG TAB20 MG PER TUBE (21:02)
[2017-05-17] MEDS ORDERED: FENTANYL PATCH75 MCG TRANSDERM (21:05)
[2017-05-17] MEDS ORDERED: NEPHROCAPS SOFT1 CAP PER TUBE (21:05)
[2017-05-17] MEDS ORDERED: HYDROCODONE-ACE15 ML PER TUBE (21:06)
[2017-05-17 21:09] LABS: CALCIUM 8.5 mg/dL (8.5-10.1); CREATININE 2.6 mg/dL (0.6-1.0)
[2017-05-17 21:12] LABS: POTASSIUM 2.5 mmol/L (3.5-5.1)
[2017-05-17 21:16] LABS: TOTAL BILIRUBIN 0.4 mg/dL (<0.1-1.0)
[2017-05-17 21:17] LABS: ALBUMIN 2.2 g/dL (3.4-5.0); TOTAL PROTEIN 6.6 g/dL (6.4-8.2)
[2017-05-17 21:21] LABS: ABSOLUTE NEUTROPHILS 24.4 thou/uL (1.4-8.2); ANISOCYTOSIS 1+; TOTAL CELL COUNT 100
[2017-05-17 22:43] VITALS: BP 172/68
[2017-05-17 23:13] LABS: URINE BLOOD 2+ (Negative); URINE COLOR BROWN; URINE GLUCOSE-RANDOM* NEGATIVE (Negative); URINE KETONES TRACE (Negative); URINE NITRITE POSITIVE (Negative); URINE PROTEIN (DIPSTICK) TRACE (Negative); URINE UROBILINOGEN 0.2 E.U./dl (0.2-1.0)
[2017-05-17 23:20] LABS: ICTOTEST (BILI CONFIRMATORY) Negative (Negative); URINE BILIRUBIN NEGATIVE (Negative)
[2017-05-17 23:24] LABS: CASTS None Seen /LPF (None Seen); SQUAMOUS >10 Many /LPF (0-3); URINE WBC 6-15 Few /HPF (0-5)
[2017-05-17 23:25] LABS: BACTERIA 1-9 Few /HPF (None Seen); YEAST Present (None Seen)
[2017-05-17 23:27] LABS: CRYSTALS None Seen /LPF (None Seen)
[2017-05-17 23:45] VITALS: BP 115/35
[2017-05-18 04:40] VITALS: BP 148/26
[2017-05-18 07:53] LABS: HEMATOCRIT 21.7 % (37.0-47.0); HEMOGLOBIN 7.2 gm/dL (12.0-15.0); MCH 30.7 pg (26.0-34.0); MCV 92.9 fL (80.0-100.0); RBC 2.33 mil/uL (4.20-5.00); RDW 16.9 % (10.5-14.5); WBC 21.7 thou/uL (4.0-11.0)
[2017-05-18 08:03] LABS: CALCIUM 7.9 mg/dL (8.5-10.1); CREATININE 2.9 mg/dL (0.6-1.0)
[2017-05-18 08:04] VITALS: BP 105/30
[2017-05-18 08:06] LABS: POTASSIUM 4.2 mmol/L (3.5-5.1)
[2017-05-18 16:23] VITALS: BP 110/38
[2017-05-18 20:22] VITALS: BP 107/33
[2017-05-19 04:15] VITALS: BP 107/56
[2017-05-19 09:57] VITALS: BP 119/37
[2017-05-19 10:29] LABS: HEMATOCRIT 22.1 % (37.0-47.0); HEMOGLOBIN 7.3 gm/dL (12.0-15.0); MCH 30.5 pg (26.0-34.0); MCHC 32.8 g/dL (28.0-37.0); MCV 92.8 fL (80.0-100.0); RBC 2.38 mil/uL (4.20-5.00); RDW 16.6 % (10.5-14.5); WBC 18.8 thou/uL (4.0-11.0)
[2017-05-19 10:44] LABS: CALCIUM 8.4 mg/dL (8.5-10.1); POTASSIUM 3.2 mmol/L (3.5-5.1)
[2017-05-19 16:21] VITALS: BP 122/35
[2017-05-19 20:30] VITALS: BP 122/46
[2017-05-20 05:30] VITALS: BP 119/49
[2017-05-20 06:17] LABS: HEMATOCRIT 21.5 % (37.0-47.0); HEMOGLOBIN 6.8 gm/dL (12.0-15.0); MCH 29.6 pg (26.0-34.0); MCHC 31.8 g/dL (28.0-37.0); MCV 93.1 fL (80.0-100.0); RBC 2.31 mil/uL (4.20-5.00); RDW 16.3 % (10.5-14.5); WBC 12.5 thou/uL (4.0-11.0)
[2017-05-20 06:27] LABS: CALCIUM 8.4 mg/dL (8.5-10.1); CREATININE 4.8 mg/dL (0.6-1.0)
[2017-05-20 06:31] LABS: POTASSIUM 2.8 mmol/L (3.5-5.1)
[2017-05-20 08:34] VITALS: BP 127/49
[2017-05-20 16:05] VITALS: BP 151/64
[2017-05-20 18:27] VITALS: BP 139/64; BP 148/69
[2017-05-20 22:15] VITALS: BP 148/69
[2017-05-21 04:15] VITALS: BP 129/58
[2017-05-21 06:10] LABS: HEMOGLOBIN 8.1 gm/dL (12.0-15.0); MCH 29.6 pg (26.0-34.0); MCHC 32.2 g/dL (28.0-37.0); MCV 91.7 fL (80.0-100.0); RBC 2.73 mil/uL (4.20-5.00); RDW 18.3 % (10.5-14.5); WBC 13.7 thou/uL (4.0-11.0)
[2017-05-21 06:22] LABS: CALCIUM 7.9 mg/dL (8.5-10.1)
[2017-05-21 06:23] LABS: CREATININE 3.2 mg/dL (0.6-1.0)
[2017-05-21 06:26] LABS: POTASSIUM 2.9 mmol/L (3.5-5.1)
[2017-05-21 07:45] VITALS: BP 144/53
[2017-05-21 15:38] VITALS: BP 126/44
[2017-05-21 18:21] LABS: FOLIC ACID 18.6 ng/mL (8.6-58.9)
[2017-05-21 20:04] VITALS: BP 121/55
[2017-05-22 03:38] VITALS: BP 116/36
[2017-05-22 05:53] LABS: HEMATOCRIT 24.3 % (37.0-47.0); HEMOGLOBIN 7.8 gm/dL (12.0-15.0); MCH 29.2 pg (26.0-34.0); MCHC 31.9 g/dL (28.0-37.0); MCV 91.6 fL (80.0-100.0); RBC 2.66 mil/uL (4.20-5.00); RDW 17.8 % (10.5-14.5); WBC 12.4 thou/uL (4.0-11.0)
[2017-05-22 06:13] LABS: CALCIUM 7.7 mg/dL (8.5-10.1); CREATININE 4.1 mg/dL (0.6-1.0)
[2017-05-22 06:16] LABS: POTASSIUM 2.8 mmol/L (3.5-5.1)
[2017-05-22 08:13] VITALS: BP 125/64
[2017-05-22 15:37] VITALS: BP 137/52
[2017-05-22 20:00] VITALS: BP 114/33
[2017-05-23 04:15] VITALS: BP 102/53
[2017-05-23 05:38] LABS: MCH 29.4 pg (26.0-34.0); MCV 91.9 fL (80.0-100.0); RBC 2.72 mil/uL (4.20-5.00); RDW 17.9 % (10.5-14.5); WBC 13.4 thou/uL (4.0-11.0)
[2017-05-23 05:48] LABS: CALCIUM 8.1 mg/dL (8.5-10.1)
[2017-05-23 06:06] LABS: CREATININE 3.1 mg/dL (0.6-1.0)
[2017-05-23 06:09] LABS: POTASSIUM 2.9 mmol/L (3.5-5.1)
[2017-05-23 07:43] VITALS: BP 99/61
[2017-05-23 19:23] VITALS: BP 120/55
[2017-05-24 02:52] VITALS: BP 148/51
[2017-05-24] MEDS ORDERED: PROTONIX40 M1 PO (13:47)
== END 2017-05-24 17:37 | disposition hospice, home (50) | DRG 871 ==
LOC: ER 19:46 → 4E 21:38 → EROBS 21:38 → 3N 23:07 → 4E 05-18 18:33
PROVIDERS: Hospitalist; Internal Medicine; Physician Assistant; Specialist
PROC: 30233N1 Transfusion of Nonautologous Red Blood Cells into Peripheral Vein, Percutaneous Approach (ICD-10-PCS; principal; 2017-05-20)
PROC: 0D758ZZ Dilation of Esophagus, Via Natural or Artificial Opening Endoscopic (ICD-10-PCS; 2017-05-23)
PROC: 5A1D60Z (ICD-10-PCS; 2017-05-24)
DX: A41.9 Sepsis, unspecified organism (principal); N18.6 End stage renal disease; E43 Unspecified severe protein-calorie malnutrition; N39.0 Urinary tract infection, site not specified; I13.2 Hypertensive heart and chronic kidney disease with heart failure and with stage 5 chronic kidney disease, or end stage renal disease; I50.32 Chronic diastolic (congestive) heart failure; N17.9 Acute kidney failure, unspecified; R47.01 Aphasia; I69.354 Hemiplegia and hemiparesis following cerebral infarction affecting left non-dominant side; K52.9 Noninfective gastroenteritis and colitis, unspecified; L98.499 Non-pressure chronic ulcer of skin of other sites with unspecified severity; I48.91 Unspecified atrial fibrillation; J44.9 Chronic obstructive pulmonary disease, unspecified; M19.90 Unspecified osteoarthritis, unspecified site; G47.33 Obstructive sleep apnea (adult) (pediatric); E78.5 Hyperlipidemia, unspecified; E66.9 Obesity, unspecified; H40.9 Unspecified glaucoma; F41.9 Anxiety disorder, unspecified; M10.9 Gout, unspecified; E87.6 Hypokalemia; K31.84 Gastroparesis; D64.9 Anemia, unspecified; K21.0 Gastro-esophageal reflux disease with esophagitis; F03.90 Unspecified dementia, unspecified severity, without behavioral disturbance, psychotic disturbance, mood disturbance, and anxiety; R13.10 Dysphagia, unspecified; Z99.2 Dependence on renal dialysis; Z90.710 Acquired absence of both cervix and uterus; I69.392 Facial weakness following cerebral infarction; Z79.899 Other long term (current) drug therapy; Z86.711 Personal history of pulmonary embolism
CPT/HCPCS: 10096; 10183; 32100; 62110; 62900; 70005